=== PATIENT | female | born 1955 ===

== ENCOUNTER 2018-05-31 12:45 | Inpatient (IN) | payer OTHER ==
[~2018-05-31] VITALS: Ht 182.9 cm; Wt 104.3 kg
[2018-05-31] MEDS ORDERED: HUMALOG100 UNIT/1 (14:26)
[2018-05-31] MEDS ORDERED: LANTUS SOL100 UNIT/1 (14:26)
[2018-05-31] MEDS ORDERED: ADULT ASPIRIN81 MG (14:27)
[2018-06-09] MEDS ORDERED: DOCUSATE SODIU100 MG PO (08:01)
[2018-06-09] MEDS ORDERED: PERCOCET 5-3251 EACH PO (08:02)
[2018-06-09] MEDS ORDERED: CLONAZEPAM1 MG PO (08:02)
== END 2018-06-09 14:09 | DRG 454 ==
LOC: O/R 06-08 04:40 → SURH 06-08 07:00 → PED 06-08 14:07
PROVIDERS: Orthopaedic Surgery Orthopaedic Surgery of the Spine
PROC: 0RG2071 Fusion of 2 or more Cervical Vertebral Joints with Autologous Tissue Substitute, Posterior Approach, Posterior Column, Open Approach (ICD-10-PCS; 2018-06-08)
PROC: 0RT30ZZ Resection of Cervical Vertebral Disc, Open Approach (ICD-10-PCS; 2018-06-08)
PROC: 07DS3ZZ Extraction of Vertebral Bone Marrow, Percutaneous Approach (ICD-10-PCS; 2018-06-08)
PROC: 0RG20A0 Fusion of 2 or more Cervical Vertebral Joints with Interbody Fusion Device, Anterior Approach, Anterior Column, Open Approach (ICD-10-PCS; principal; 2018-06-08 07:00)
DX: M50.01 Cervical disc disorder with myelopathy, high cervical region (principal); M47.12 Other spondylosis with myelopathy, cervical region; I10 Essential (primary) hypertension; E11.9 Type 2 diabetes mellitus without complications

== ENCOUNTER 2018-09-01 15:17 | Outpatient (CLI) | payer OTHER ==
[~2018-09-01 15:17] MED LIST: ADULT ASPIRIN81 MG; CLONAZEPAM1 MG PO; DOCUSATE SODIU100 MG PO; HUMALOG100 UNIT/1; LANTUS SOL100 UNIT/1; PERCOCET 5-3251 EACH PO
== END 2018-09-01 15:27 | disposition home or self-care (01) ==
LOC: RAD 15:17
DX: M50.30 Other cervical disc degeneration, unspecified cervical region (principal); Z98.1 Arthrodesis status

== ENCOUNTER → 2020-06-11 08:00 | Outpatient (CLI) | payer OTHER ==
[~2020-06-11] VITALS: Ht 182.9 cm; Wt 106.1 kg
== END | disposition home or self-care (01) ==
LOC: LAB 08:00 → SURH 06-18 10:15 → EDSTATUS 06-18 11:15
PROVIDERS: ATTEND Orthopaedic Surgery Orthopaedic Surgery of the Spine
DX: M50.023 Cervical disc disorder at C6-C7 level with myelopathy (principal); Z20.828 Contact with and (suspected) exposure to other viral communicable diseases